=== PATIENT | male | born 1985 | race African-American/Black ===

== ENCOUNTER 2016-10-20 12:47 | Emergency (ER) | payer OTHER ==
[~2016-10-20] VITALS: Ht 162.6 cm; Wt 63.7 kg
[~2016-10-20 12:47] MED LIST: ACID CONTROL150 MG PO; ALLERGY25 M2 PO; MOTRIN IB200 MG PO; MOTRIN800 MG PO; NOHOMEMEDS; PEN-VEE K,VEET500 MG PO; TAMIFLU75 MG PO; TYLENOL325 M1 PO; ULTRAM50 MG PO
[2016-10-20 15:22] LABS: HEMATOCRIT 43.5 % (38.0-50.0); MCH 29.2 PG (29.0-34.0); MCHC 33.1 G/DL (30.0-36.0); MCV 88.2 FL (86-99); MEAN PLAT.VOLUME 9.6 uM^3 (9.0-12.4); PLATELET COUNT 261 K/uL (156-360); RBC DIS.WIDTH-CV 12.2 % (11.8-14.6); RBC DIS.WIDTH-SD 39.8 % (39-53); RED BLOOD COUNT 4.93 M/uL (4.00-5.50); WHITE BLOOD COUNT 5.9 K/uL (4.1-10.2)
[2016-10-20 15:30] LABS: CHLORIDE 105 mEq/L (99-109); POTASSIUM 4.1 mEq/L (3.7-5.4); SODIUM 140 mEq/L (136-147)
[2016-10-20 15:32] LABS: GLUCOSE 83 mg/dL (70-99)
[2016-10-20 15:33] LABS: ANION GAP 10 MEQ/L (2-14)
[2016-10-20 15:34] LABS: TOTAL BILIRUBIN 1.1 mg/dL (0.0-1.0)
[2016-10-20 15:35] LABS: ALKALINE PHOSPHATASE 67 IU/L (3-129)
[2016-10-20 15:36] LABS: GFR ESTIMATE (CALCULATED) > 59 mL/min/
[2016-10-20 15:37] LABS: UREA NITROGEN (BUN) 12 mg/dL (9-23)
[2016-10-20] MEDS ORDERED: ULTRAM50 MG PO (17:16)
[2016-10-20 17:28] VITALS: BP 116/69
== END 2016-10-20 17:29 | disposition home or self-care (01) ==
LOC: EME 12:47
PROVIDERS: Physician Assistant
DX: S20.212A Contusion of left front wall of thorax, initial encounter (principal); R10.12 Left upper quadrant pain; V49.88XA Car occupant (driver) (passenger) injured in other specified transport accidents, initial encounter; A00.0 Cholera due to Vibrio cholerae 01, biovar cholerae
CPT/HCPCS: 71101; 74177; 80053; 85027; 99281; 99284